=== PATIENT | male | born 1975 | race African-American/Black ===

== ENCOUNTER 2016-10-13 14:19 | Emergency (ER) | payer OTHER ==
[~2016-10-13] VITALS: Ht 182.9 cm; Wt 74.8 kg
[~2016-10-13 14:19] MED LIST: EXCETAB80 PO; LEXA1TAB PO; No Home Meds; OXYGEN INH; TRAZ100T4 PO; TRAZ50TA4 PO; [UNRECOGNIZED DRUG - OTHER] INH
[2016-10-13] MEDS ORDERED: PRAZ5CAP (14:31)
[2016-10-13] MEDS ORDERED: MIRT45TA (14:31)
[2016-10-13] MEDS ORDERED: BUPR150T3 (14:31)
[2016-10-13] MEDS ORDERED: OXAZEPAM 15 MG CAP PO ONE (14:45)
[2016-10-13 15:03] LABS: BASO % 0.2 % (0.0-1.0); EOS # 0.2 K/mm3 (0.0-0.50); EOS % 2.5 % (0.0-3.0); LARGE UNSTAINED CELL # 0.1 K/mm3 (0.0-0.4); LARGE UNSTAINED CELL % 1.5 % (0.0-4.0); LYMPH # 1.6 K/mm3 (1.5-4.5); LYMPH % 16.7 % (24.0-44.0); MEAN CORPUSCULAR HEMOGLOBIN 30.1 pg (27.0-33.0); MEAN CORPUSCULAR HGB CONC 34.7 g/dl (32.0-36.5); MEAN CORPUSCULAR VOLUME 86.9 fl (80.0-96.0); MONO # 0.3 K/mm3 (0.0-0.8); MONO % 3.7 % (0.0-5.0); NEUTROPHILS # 6.8 K/mm3 (1.8-7.7); NEUTROPHILS % 75.4 % (36.0-66.0); PLATELET COUNT, AUTOMATED 248 k/mm3 (150-450); RED CELL DISTRIBUTION WIDTH 12.6 % (11.5-14.5)
[2016-10-13 15:27] LABS: ALBUMIN 4.3 GM/DL (3.2-5.2); ALBUMIN/GLOBULIN RATIO 1.13 (1.00-1.93); ALKALINE PHOSPHATASE 95 U/L (45-117); ALT/SGPT 22 U/L (12-78); ANION GAP 10 MEQ/L (8-16); AST/SGOT 30 U/L (15-37); BILIRUBIN,DIRECT 0.1 MG/DL (0.0-0.2); BILIRUBIN,TOTAL 0.4 MG/DL (0.2-1.0); BLOOD UREA NITROGEN 7 MG/DL (7-18); CALCIUM LEVEL 9.8 MG/DL (8.5-10.1); CARBON DIOXIDE LEVEL 27 MEQ/L (21-32); CHLORIDE LEVEL 102 MEQ/L (98-107); CREATININE FOR GFR 0.79 MG/DL (0.70-1.30); GLOMERULAR FILTRATION RATE > 60.0 (>60); GLUCOSE, FASTING 108 MG/DL (70-105); POTASSIUM SERUM 4.5 MEQ/L (3.5-5.1); SODIUM LEVEL 139 MEQ/L (136-145); TOTAL PROTEIN 8.1 GM/DL (6.4-8.2)
[2016-10-13 16:34] VITALS: BP 150/89
[2016-10-13] MEDS ORDERED: OXAZ30CA2 PO (16:51)
== END 2016-10-13 17:05 | disposition home or self-care (01) ==
LOC: M ED 15:48
DX: F10.239 Alcohol dependence with withdrawal, unspecified (principal)

== ENCOUNTER → 2017-03-08 | Outpatient (CLI) | payer MEDICAID ==
[~2017-03-08] MED LIST changes: +BUPR150T3; +MIRT45TA; +OXAZ30CA2 PO; +PRAZ5CAP; +TRAZ-136 PO; -TRAZ100T4 PO; +TRAZ50TA11 PO; -TRAZ50TA4 PO
== END ==
LOC: M OUTALCOH 08:02
PROVIDERS: ATTEND Psychiatry & Neurology Psychiatry
DX: Z03.89 Encounter for observation for other suspected diseases and conditions ruled out (principal)

== ENCOUNTER 2017-03-17 09:00 | Outpatient (RCR) | payer MEDICAID | END 2017-03-30 | LOC: M OUTALCOH 09:00 | PROVIDERS: ATTEND Psychiatry & Neurology Psychiatry | DX: Z13.9 Encounter for screening, unspecified (principal); F10.20 Alcohol dependence, uncomplicated ==

== ENCOUNTER → 2017-06-14 | Outpatient (CLI) | payer MEDICAID | LOC: M OUTALCOH 07:49 | PROVIDERS: ATTEND Psychiatry & Neurology Psychiatry | DX: F10.20 Alcohol dependence, uncomplicated (principal); F12.20 Cannabis dependence, uncomplicated ==

== ENCOUNTER 2017-06-26 13:19 | Outpatient (RCR) | payer MEDICAID | END 2017-06-29 | LOC: M OUTALCOH 13:19 | PROVIDERS: ATTEND Psychiatry & Neurology Psychiatry | DX: F10.20 Alcohol dependence, uncomplicated (principal); F12.20 Cannabis dependence, uncomplicated; F17.200 Nicotine dependence, unspecified, uncomplicated ==

== ENCOUNTER 2017-06-30 11:03 | Outpatient (RCR) | payer MEDICAID | END 2017-07-30 | LOC: M OUTALCOH 07-06 13:00 | DX: F10.20 Alcohol dependence, uncomplicated (principal); F12.20 Cannabis dependence, uncomplicated; F17.200 Nicotine dependence, unspecified, uncomplicated ==

== ENCOUNTER 2017-07-29 15:58 | Inpatient (IN) | payer OTHER, MEDICAID ==
[2017-07-29 15:18] LABS: HEMATOCRIT 42.4 % (42.0-52.0); HEMOGLOBIN 15.2 g/dl (14.0-18.0); MEAN CORPUSCULAR HEMOGLOBIN 29.7 pg (27.0-33.0); MEAN CORPUSCULAR HGB CONC 35.8 g/dl (32.0-36.5); MEAN CORPUSCULAR VOLUME 82.8 fl (80.0-96.0); PLATELET COUNT, AUTOMATED 260 10^3/uL (150-450); RED BLOOD COUNT 5.12 10^6/uL (4.30-6.10); RED CELL DISTRIBUTION WIDTH 12.2 % (11.5-14.5); WHITE BLOOD COUNT 7.5 10^3/uL (4.0-10.0)
[2017-07-29 15:27] LABS: AMPHETAMINES LEVEL URINE NEGATIVE (NEGATIVE); BARBITURATES URINE NEGATIVE (NEGATIVE); BENZODIAZEPINES URINE NEGATIVE (NEGATIVE); CANNABINOIDS URINE NEGATIVE (NEGATIVE); COCAINE METABOLITE URINE NEGATIVE (NEGATIVE); METHADONE URINE NEGATIVE (NEGATIVE); OPIATES URINE NEGATIVE (NEGATIVE); PHENCYCLIDINE URINE NEGATIVE (NEGATIVE)
[2017-07-29] MEDS: OXAZEPAM 15 MG CAP PO (15:33)
[2017-07-29 15:39] LABS: ALBUMIN 4.5 GM/DL (3.2-5.2); ALBUMIN/GLOBULIN RATIO 1.22 (1.00-1.93); ALKALINE PHOSPHATASE 79 U/L (45-117); ALT/SGPT 34 U/L (12-78); ANION GAP 7 MEQ/L (8-16); AST/SGOT 30 U/L (7-37); BILIRUBIN,DIRECT 0.1 MG/DL (0.0-0.2); BILIRUBIN,TOTAL 0.4 MG/DL (0.2-1.0); BLOOD UREA NITROGEN 5 MG/DL (7-18); CALCIUM LEVEL 9.3 MG/DL (8.5-10.1); CARBON DIOXIDE LEVEL 29 MEQ/L (21-32); CHLORIDE LEVEL 102 MEQ/L (98-107); CREATININE FOR GFR 0.93 MG/DL (0.70-1.30); GLOMERULAR FILTRATION RATE > 60.0 (>60); GLUCOSE, FASTING 87 MG/DL (70-105); POTASSIUM SERUM 3.6 MEQ/L (3.5-5.1); SALICYLATE LEVEL 4.7 MG/DL (5.0-30.0); SODIUM LEVEL 138 MEQ/L (136-145); THYROID STIMULATING HORMONE 0.888 uIU/ML (0.358-3.740); TOTAL PROTEIN 8.2 GM/DL (6.4-8.2)
[2017-07-29 15:40] LABS: ACETAMINOPHEN LEVEL < 2.0 UG/ML (10.0-30.0); ETHYL ALCOHOL (ETHANOL) < 0.003 % (0.000-0.010)
[2017-07-29] MEDS ORDERED: LORazepam 2 MG TAB PO (17:00)
[2017-07-29] MEDS ORDERED: MAALOX 30 ML SUSP *UDC PO (17:00)
[2017-07-29] MEDS ORDERED: MOM 30ML SUSPENSION UDC PO (17:00)
[2017-07-29] MEDS ORDERED: ACETAMINOPHEN TAB 650MG DOSE (2X325MG) PO (17:00)
[2017-07-29] MEDS: FOLIC ACID 1 MG TAB PO (20:58)
[2017-07-29] MEDS: THIAMINE 100 MG TAB PO (20:58)
[2017-07-29] MEDS: MULTIVITAMINS/MINERALS THERAP 1 TAB PO (20:58)
[2017-07-30] MEDS: FOLIC ACID 1 MG TAB PO (08:12)
[2017-07-30] MEDS: THIAMINE 100 MG TAB PO ×2 (08:12→21:34)
[2017-07-30] MEDS: MULTIVITAMINS/MINERALS THERAP 1 TAB PO (08:12)
[2017-07-30] MEDS: NICOTINE 21MG/24HR 1 EA TRANSDERMAL TD (14:07)
[2017-07-30] MEDS: GABAPENTIN 400 MG CAP PO (21:34)
[2017-07-31] MEDS: ESCITALOPRAM OXALATE 10 MG TAB (LEXAPRO) PO (09:12)
[2017-07-31] MEDS: FOLIC ACID 1 MG TAB PO (09:12)
[2017-07-31] MEDS: NICOTINE 21MG/24HR 1 EA TRANSDERMAL TD (09:12)
[2017-07-31] MEDS: THIAMINE 100 MG TAB PO ×2 (09:12→20:50)
[2017-07-31] MEDS: MULTIVITAMINS/MINERALS THERAP 1 TAB PO (09:12)
[2017-07-31] MEDS: traZODone 50 MG TAB PO (20:50)
[2017-07-31] MEDS: GABAPENTIN 400 MG CAP PO (20:50)
[2017-07-31] MEDS ORDERED: IBUPROFEN 800 MG TAB PO (21:45)
[2017-08-01] MEDS: ESCITALOPRAM OXALATE 10 MG TAB (LEXAPRO) PO (08:39)
[2017-08-01] MEDS: THIAMINE 100 MG TAB PO (08:39)
[2017-08-01] MEDS: NICOTINE 21MG/24HR 1 EA TRANSDERMAL TD (08:39)
[2017-08-01] MEDS: MULTIVITAMINS/MINERALS THERAP 1 TAB PO (08:39)
[2017-08-01] MEDS: FOLIC ACID 1 MG TAB PO (08:39)
[2017-08-01] MEDS: HALOPERIDOL 5 MG TAB PO (18:11)
[2017-08-01] MEDS ORDERED: PRAZOSIN 1 MG CAP PO (21:00)
[2017-08-01] MEDS: GABAPENTIN 400 MG CAP PO (22:00)
[2017-08-01] MEDS: QUEtiapine FUMARATE 50 MG TAB PO (22:00)
[2017-08-02] MEDS: NICOTINE 21MG/24HR 1 EA TRANSDERMAL TD (08:26)
[2017-08-02] MEDS: FOLIC ACID 1 MG TAB PO (08:27)
[2017-08-02] MEDS: MULTIVITAMINS/MINERALS THERAP 1 TAB PO (08:27)
[2017-08-02] MEDS: ESCITALOPRAM OXALATE 10 MG TAB (LEXAPRO) PO (08:27)
[2017-08-02] MEDS: HALOPERIDOL 5 MG TAB PO (10:55)
[2017-08-02] MEDS: GABAPENTIN 400 MG CAP PO (20:34)
[2017-08-02] MEDS: QUEtiapine FUMARATE 100 MG TAB PO (20:34)
[2017-08-03] MEDS: ESCITALOPRAM OXALATE 10 MG TAB (LEXAPRO) PO (09:28)
[2017-08-03] MEDS: NICOTINE 21MG/24HR 1 EA TRANSDERMAL TD (09:28)
[2017-08-03] MEDS: MULTIVITAMINS/MINERALS THERAP 1 TAB PO (09:29)
[2017-08-03] MEDS: FOLIC ACID 1 MG TAB PO (09:29)
[2017-08-03] MEDS: HALOPERIDOL 5 MG TAB PO (13:26)
[2017-08-03] MEDS: QUEtiapine FUMARATE 100 MG TAB PO (20:02)
[2017-08-03] MEDS: GABAPENTIN 400 MG CAP PO (20:02)
[2017-08-04] MEDS: FOLIC ACID 1 MG TAB PO (08:58)
[2017-08-04] MEDS: NICOTINE 21MG/24HR 1 EA TRANSDERMAL TD (08:58)
[2017-08-04] MEDS: MULTIVITAMINS/MINERALS THERAP 1 TAB PO (08:58)
[2017-08-04] MEDS: ESCITALOPRAM OXALATE 10 MG TAB (LEXAPRO) PO (08:58)
[2017-08-04] MEDS: QUEtiapine FUMARATE 100 MG TAB PO (20:08)
[2017-08-04] MEDS: GABAPENTIN 400 MG CAP PO (20:08)
[2017-08-05] MEDS: NICOTINE 21MG/24HR 1 EA TRANSDERMAL TD (08:00)
[2017-08-05] MEDS: MULTIVITAMINS/MINERALS THERAP 1 TAB PO (08:00)
[2017-08-05] MEDS: ESCITALOPRAM OXALATE 10 MG TAB (LEXAPRO) PO (08:00)
[2017-08-05] MEDS: FOLIC ACID 1 MG TAB PO (08:00)
[2017-08-05] MEDS: GABAPENTIN 400 MG CAP PO (20:07)
[2017-08-05] MEDS: QUEtiapine FUMARATE 100 MG TAB PO (20:07)
[2017-08-06] MEDS: ESCITALOPRAM OXALATE 10 MG TAB (LEXAPRO) PO (08:05)
[2017-08-06] MEDS: FOLIC ACID 1 MG TAB PO (08:05)
[2017-08-06] MEDS: MULTIVITAMINS/MINERALS THERAP 1 TAB PO (08:05)
[2017-08-06] MEDS: NICOTINE 21MG/24HR 1 EA TRANSDERMAL TD (08:06)
[2017-08-06] MEDS: HALOPERIDOL 5 MG TAB PO (09:38)
[2017-08-06] MEDS: GABAPENTIN 400 MG CAP PO (20:48)
[2017-08-06] MEDS: QUEtiapine FUMARATE 100 MG TAB PO (20:48)
[2017-08-06] MEDS: traZODone 50 MG TAB PO (21:44)
[2017-08-07] MEDS: MULTIVITAMINS/MINERALS THERAP 1 TAB PO (08:39)
[2017-08-07] MEDS: FOLIC ACID 1 MG TAB PO (08:39)
[2017-08-07] MEDS: NICOTINE 21MG/24HR 1 EA TRANSDERMAL TD (08:39)
[2017-08-07] MEDS: ESCITALOPRAM OXALATE 10 MG TAB (LEXAPRO) PO (08:39)
[2017-08-07] MEDS: HALOPERIDOL 5 MG TAB PO (11:25)
[2017-08-07] MEDS: GABAPENTIN 400 MG CAP PO (20:03)
[2017-08-07] MEDS: QUEtiapine FUMARATE 100 MG TAB PO (20:04)
[2017-08-07] MEDS: traZODone 50 MG TAB PO (20:46)
[2017-08-08] MEDS: NICOTINE 21MG/24HR 1 EA TRANSDERMAL TD (08:30)
[2017-08-08] MEDS: ESCITALOPRAM OXALATE 10 MG TAB (LEXAPRO) PO (08:30)
[2017-08-08] MEDS: HALOPERIDOL 5 MG TAB PO (08:30)
[2017-08-08] MEDS: MULTIVITAMINS/MINERALS THERAP 1 TAB PO (08:30)
[2017-08-08] MEDS: FOLIC ACID 1 MG TAB PO (08:30)
[2017-08-08] MEDS: traZODone 50 MG TAB PO (20:08)
[2017-08-08] MEDS: QUEtiapine FUMARATE 100 MG TAB PO (20:08)
[2017-08-08] MEDS: GABAPENTIN 400 MG CAP PO (20:08)
[2017-08-09] MEDS: FOLIC ACID 1 MG TAB PO (08:24)
[2017-08-09] MEDS: NICOTINE 21MG/24HR 1 EA TRANSDERMAL TD (08:24)
[2017-08-09] MEDS: MULTIVITAMINS/MINERALS THERAP 1 TAB PO (08:24)
[2017-08-09] MEDS: ESCITALOPRAM OXALATE 10 MG TAB (LEXAPRO) PO (08:24)
[2017-08-09] MEDS: HALOPERIDOL 5 MG TAB PO (08:25)
== END 2017-08-09 14:25 | disposition home or self-care (01) | DRG 750 ==
LOC: M ED 15:58 → M ED INP 17:13 → M PSY 18:08
DX: F20.0 Paranoid schizophrenia (principal); F32.9 Major depressive disorder, single episode, unspecified; F10.10 Alcohol abuse, uncomplicated; F12.10 Cannabis abuse, uncomplicated; G44.009 Cluster headache syndrome, unspecified, not intractable; G47.00 Insomnia, unspecified; Z59.8 Other problems related to housing and economic circumstances; Z79.899 Other long term (current) drug therapy; Z91.038 Other insect allergy status; F17.210 Nicotine dependence, cigarettes, uncomplicated

== ENCOUNTER 2017-08-11 08:51 | Outpatient (RCR) | payer MEDICAID | END 2017-08-30 | LOC: M OUTALCOH 08:51 | DX: F10.20 Alcohol dependence, uncomplicated (principal); F12.20 Cannabis dependence, uncomplicated; F17.200 Nicotine dependence, unspecified, uncomplicated ==

== ENCOUNTER 2017-09-01 11:19 | Outpatient (RCR) | payer MEDICAID | END 2017-09-27 | LOC: M OUTALCOH 11:19 | DX: F10.20 Alcohol dependence, uncomplicated (principal); F12.20 Cannabis dependence, uncomplicated; F17.200 Nicotine dependence, unspecified, uncomplicated ==

== ENCOUNTER 2021-10-23 07:40 | Inpatient (IN) | payer MEDICAID ==
[~2021-10-23] VITALS: Ht 180.3 cm; Wt 69.4 kg
[~2021-10-23 07:40] MED LIST changes: +BUPR150T12; -BUPR150T3; +FOLI800C PO; +GABA-283 PO; -MIRT45TA; +MIRT45TA4 PO; +MULTCAP12 PO; +SERO200T PO; -TRAZ-136 PO; +TRAZ-252 PO; +TRAZ-257 PO; -TRAZ50TA11 PO; +ZIPR40CA11 PO
[2021-10-23] MEDS ORDERED: NS 1,000 ML IV ONE (07:55)
[2021-10-23] MEDS ORDERED: BOOSTRIX/ADACEL VACCINE (DIPHTH/PERTUSS/ACELL/TETANUS) 0.5ML SYR IM ONE (07:55)
[2021-10-23] MEDS ORDERED: ceFAZolin SOD 1 GM in D5W MINI-BAG PLUS 50 ML IV ONE (07:55)
[2021-10-23] MEDS ORDERED: LIDOCAINE W/EPINEPHRINE 1% 20ML VIAL SC ONE (08:05)
[2021-10-23] MEDS ORDERED: OLANZapine INTRAMUSCULAR 10MG VIAL IM ONE (08:10)
[2021-10-23 08:21] LABS: HEMATOCRIT 36.2 % (42.0-52.0); HEMOGLOBIN 12.9 g/dl (13.5-17.5); MEAN CORPUSCULAR HEMOGLOBIN 29.9 pg (27.0-33.0); MEAN CORPUSCULAR HGB CONC 35.6 g/dl (32.0-36.5); PLATELET COUNT, AUTOMATED 304 10^3/uL (150-450); RED BLOOD COUNT 4.31 10^6/uL (4.30-6.10); WHITE BLOOD COUNT 9.6 10^3/uL (4.0-10.0)
[2021-10-23] MEDS ORDERED: DERMABOND TOPICAL SKIN ADHESIVE TOP STA (08:33)
[2021-10-23 08:43] LABS: RSV AMPLIFICATION NEGATIVE (NEGATIVE)
[2021-10-23] MEDS ORDERED: MIDAZOLAM INJ 2MG/2ML VIAL (J2250 PER 1MG) IV STA (08:48)
[2021-10-23] MEDS ORDERED: fentaNYL 100 MCG/2 ML INJECTION IV ONE ×2 (08:50→09:40)
[2021-10-23 08:54] LABS: ACETAMINOPHEN LEVEL < 2.0 UG/ML (10.0-30.0); ALBUMIN 4.3 GM/DL (3.2-5.2); ALT/SGPT 36 U/L (12-78); BILIRUBIN,DIRECT 0.1 MG/DL (0.0-0.2); BILIRUBIN,TOTAL 0.4 MG/DL (0.2-1.0); BLOOD UREA NITROGEN 11 MG/DL (7-18); CALCIUM LEVEL 9.7 MG/DL (8.5-10.1); CARBON DIOXIDE LEVEL 26 MEQ/L (21-32); CHLORIDE LEVEL 105 MEQ/L (98-107); CREATININE FOR GFR 0.84 MG/DL (0.70-1.30); ETHYL ALCOHOL (ETHANOL) < 0.003 % (0.000-0.010); GLOMERULAR FILTRATION RATE > 60.0 (>60); GLUCOSE, FASTING 104 MG/DL (70-100); POTASSIUM SERUM 4.2 MEQ/L (3.5-5.1); SALICYLATE LEVEL 4.7 MG/DL (5.0-30.0); SODIUM LEVEL 138 MEQ/L (136-145); THYROID STIMULATING HORMONE 0.613 uIU/ML (0.358-3.740); TOTAL PROTEIN 7.2 GM/DL (6.4-8.2)
[2021-10-23 12:29] LABS: AMPHETAMINES LEVEL URINE NEGATIVE (NEGATIVE); BARBITURATES URINE NEGATIVE (NEGATIVE); BENZODIAZEPINES URINE POSITIVE (NEGATIVE); CANNABINOIDS URINE POSITIVE (NEGATIVE); COCAINE METABOLITE URINE NEGATIVE (NEGATIVE); METHADONE URINE NEGATIVE (NEGATIVE); OPIATES URINE NEGATIVE (NEGATIVE); PHENCYCLIDINE URINE NEGATIVE (NEGATIVE)
[2021-10-23] MEDS ORDERED: MAALOX 30 ML SUSP *UDC PO PRN (13:40)
[2021-10-23 15:04] VITALS: BP 143/65
[2021-10-23] MEDS ORDERED: HOME MED LIST COMPLETE! XX SCH (15:05)
[2021-10-23] MEDS: GABAPENTIN 400MG CAP PO SCH ×2 (15:37→21:18)
[2021-10-23] MEDS: PERCOCET 5MG/325MG TAB PO PRN ×2 (15:38→23:41)
[2021-10-23] MEDS: OLANZapine ORAL DISINTEGRATING TAB 5MG PO PRN (15:38)
[2021-10-23 19:53] VITALS: BP 129/69
[2021-10-23] MEDS: QUEtiapine FUMARATE 200 MG TAB PO SCH (21:18)
[2021-10-23] MEDS: PALIPERIDONE 3 MG ER TAB (INVEGA) PO SCH (21:18)
[2021-10-23] MEDS: ACETAMINOPHEN TAB 650MG DOSE (2X325MG) PO PRN (21:20)
[2021-10-24] MEDS: ACETAMINOPHEN TAB 650MG DOSE (2X325MG) PO PRN ×3 (05:21→23:47)
[2021-10-24 06:58] VITALS: BP 147/88
[2021-10-24] MEDS: FOLIC ACID 1 MG TAB PO SCH (08:10)
[2021-10-24] MEDS: GABAPENTIN 400MG CAP PO SCH ×3 (08:10→20:25)
[2021-10-24] MEDS: MULTIVITAMINS/MINERALS THERAP 1 TAB PO SCH (08:11)
[2021-10-24] MEDS: ESCITALOPRAM OXALATE 10 MG TAB (LEXAPRO) PO SCH (08:11)
[2021-10-24] MEDS: PALIPERIDONE 3 MG ER TAB (INVEGA) PO SCH ×2 (08:11→20:25)
[2021-10-24] MEDS: PERCOCET 5MG/325MG TAB PO PRN ×2 (09:25→20:47)
[2021-10-24] MEDS: NICOTINE 21MG/24HR 1 EA TRANSDERMAL TD SCH (15:21)
[2021-10-24] MEDS: OLANZapine ORAL DISINTEGRATING TAB 5MG PO PRN ×2 (16:59→20:46)
[2021-10-24] MEDS: DIVALPROEX 250 MG TAB PO SCH (20:25)
[2021-10-24] MEDS: QUEtiapine FUMARATE 200 MG TAB PO SCH (20:25)
[2021-10-24 20:30] VITALS: BP 146/91
[2021-10-24 21:23] VITALS: BP 159/94
[2021-10-24 22:24] VITALS: BP 115/76
[2021-10-25] MEDS: OLANZapine ORAL DISINTEGRATING TAB 5MG PO PRN (02:21)
[2021-10-25 04:50] VITALS: BP 134/84
[2021-10-25] MEDS: FOLIC ACID 1 MG TAB PO SCH (10:44)
[2021-10-25] MEDS: GABAPENTIN 400MG CAP PO SCH ×3 (10:44→20:18)
[2021-10-25] MEDS: MULTIVITAMINS/MINERALS THERAP 1 TAB PO SCH (10:44)
[2021-10-25] MEDS: ESCITALOPRAM OXALATE 10 MG TAB (LEXAPRO) PO SCH (10:45)
[2021-10-25] MEDS: NICOTINE 21MG/24HR 1 EA TRANSDERMAL TD SCH (10:45)
[2021-10-25] MEDS: DIVALPROEX 250 MG TAB PO SCH (10:45)
[2021-10-25] MEDS: PALIPERIDONE 3 MG ER TAB (INVEGA) PO SCH ×2 (10:45→20:18)
[2021-10-25] MEDS: ACETAMINOPHEN TAB 650MG DOSE (2X325MG) PO PRN (15:00)
[2021-10-25 16:26] VITALS: BP 135/83
[2021-10-25] MEDS: QUEtiapine FUMARATE 200 MG TAB PO SCH (20:18)
[2021-10-25] MEDS: DIVALPROEX 500MG *ER* TAB PO SCH (20:18)
[2021-10-25 21:04] VITALS: BP 98/50
[2021-10-25] MEDS ORDERED: LORazepam 2 MG TAB PO PRN (21:05)
[2021-10-25] MEDS: THIAMINE 100 MG TAB PO SCH (21:25)
[2021-10-25] MEDS: OXAZEPAM 15MG CAP PO SCH (21:26)
[2021-10-25] MEDS: PERCOCET 5MG/325MG TAB PO PRN (21:49)
[2021-10-26] MEDS: OXAZEPAM 15MG CAP PO SCH ×3 (05:58→21:33)
[2021-10-26 06:09] VITALS: BP 147/83
[2021-10-26 06:14] VITALS: BP 147/83
[2021-10-26] MEDS: PALIPERIDONE 3 MG ER TAB (INVEGA) PO SCH ×2 (08:00→20:47)
[2021-10-26] MEDS: GABAPENTIN 400MG CAP PO SCH (08:00)
[2021-10-26] MEDS: THIAMINE 100 MG TAB PO SCH ×2 (08:02→20:47)
[2021-10-26] MEDS: NICOTINE 21MG/24HR 1 EA TRANSDERMAL TD SCH (08:02)
[2021-10-26] MEDS ORDERED: MULTIVITAMINS/MINERALS THERAP 1 TAB PO SCH (09:00)
[2021-10-26] MEDS ORDERED: FOLIC ACID 1 MG TAB PO SCH (09:00)
[2021-10-26] MEDS ORDERED: ESCITALOPRAM OXALATE 5MG TABLET (LEXAPRO) PO SCH (09:00)
[2021-10-26 16:18] VITALS: BP 138/88
[2021-10-26] MEDS: PERCOCET 5MG/325MG TAB PO PRN (16:35)
[2021-10-26] MEDS: MOM 30ML SUSPENSION UDC PO PRN (19:13)
[2021-10-26] MEDS: DIVALPROEX 500MG *ER* TAB PO SCH (20:47)
[2021-10-26] MEDS: QUEtiapine FUMARATE 100 MG TAB PO SCH (20:48)
[2021-10-26] MEDS ORDERED: PALIPERIDONE 3 MG ER TAB (INVEGA) PO SCH (21:00)
[2021-10-26 21:59] VITALS: BP 138/88
[2021-10-27] MEDS: OXAZEPAM 15MG CAP PO SCH ×3 (06:03→22:00)
[2021-10-27 06:43] VITALS: BP 136/80
[2021-10-27] MEDS: THIAMINE 100 MG TAB PO SCH ×2 (09:00→20:35)
[2021-10-27] MEDS: PALIPERIDONE 3 MG ER TAB (INVEGA) PO SCH ×2 (09:31→20:31)
[2021-10-27] MEDS: NICOTINE 21MG/24HR 1 EA TRANSDERMAL TD SCH (09:33)
[2021-10-27] MEDS: OLANZapine ORAL DISINTEGRATING TAB 5MG PO PRN (14:05)
[2021-10-27 16:44] VITALS: BP 142/69
[2021-10-27] MEDS: MOM 30ML SUSPENSION UDC PO PRN (19:28)
[2021-10-27] MEDS: DIVALPROEX 500MG *ER* TAB PO SCH (20:32)
[2021-10-27] MEDS: QUEtiapine FUMARATE 100 MG TAB PO SCH (20:35)
[2021-10-27] MEDS ORDERED: PALIPERIDONE 3 MG ER TAB (INVEGA) PO SCH (21:00)
[2021-10-28] MEDS: OLANZapine ORAL DISINTEGRATING TAB 5MG PO PRN ×4 (02:03→21:57)
[2021-10-28 06:00] VITALS: BP 161/94
[2021-10-28] MEDS: OXAZEPAM 15MG CAP PO SCH ×3 (06:25→21:56)
[2021-10-28] MEDS: THIAMINE 100 MG TAB PO SCH ×2 (08:52→20:38)
[2021-10-28] MEDS: NICOTINE 21MG/24HR 1 EA TRANSDERMAL TD SCH (08:52)
[2021-10-28] MEDS: PALIPERIDONE 3 MG ER TAB (INVEGA) PO SCH ×2 (08:52→20:38)
[2021-10-28 09:12] LABS: CHOLESTEROL RISK RATIO 2.317 (<5); VALPROIC ACID (DEPAKOTE) 68.4 UG/ML (50.0-100.0)
[2021-10-28] MEDS: MOM 30ML SUSPENSION UDC PO PRN (15:12)
[2021-10-28] MEDS: PERCOCET 5MG/325MG TAB PO PRN (18:07)
[2021-10-28 18:29] VITALS: BP 124/84
[2021-10-28] MEDS: DIVALPROEX 500MG *ER* TAB PO SCH (20:38)
[2021-10-28] MEDS: QUEtiapine FUMARATE 100 MG TAB PO SCH (20:38)
[2021-10-28] MEDS ORDERED: PALIPERIDONE 6 MG ER TAB (INVEGA) PO SCH (21:00)
[2021-10-29 06:00] VITALS: BP 144/68
[2021-10-29] MEDS: OXAZEPAM 15MG CAP PO SCH (06:20)
[2021-10-29] MEDS: THIAMINE 100 MG TAB PO SCH (09:00)
[2021-10-29] MEDS ORDERED: PALIPERIDONE PALMITATE 234MG/1.5ML INJ (INVEGA)(FREE PSY INPT ONLY) IM SCH (09:00)
[2021-10-29] MEDS: NICOTINE 21MG/24HR 1 EA TRANSDERMAL TD SCH (09:32)
[2021-10-29] MEDS: PALIPERIDONE 3 MG ER TAB (INVEGA) PO SCH (09:33)
[2021-10-29] MEDS: OLANZapine ORAL DISINTEGRATING TAB 5MG PO PRN ×3 (09:34→20:04)
[2021-10-29] MEDS: PERCOCET 5MG/325MG TAB PO PRN (09:37)
[2021-10-29] MEDS: ACETAMINOPHEN TAB 650MG DOSE (2X325MG) PO PRN (13:13)
[2021-10-29] MEDS: OXAZEPAM 10MG CAP PO SCH ×2 (15:41→20:04)
[2021-10-29 16:26] VITALS: BP 136/88
[2021-10-29] MEDS: DIVALPROEX 500MG *ER* TAB PO SCH (20:04)
[2021-10-29] MEDS: QUEtiapine FUMARATE 100 MG TAB PO SCH (20:04)
[2021-10-29] MEDS: traZODone 50 MG TAB PO PRN (20:04)
[2021-10-30 06:27] VITALS: BP 125/77
[2021-10-30] MEDS: NICOTINE 21MG/24HR 1 EA TRANSDERMAL TD SCH (08:04)
[2021-10-30] MEDS: PERCOCET 5MG/325MG TAB PO PRN ×2 (08:06→20:26)
[2021-10-30] MEDS: OLANZapine ORAL DISINTEGRATING TAB 5MG PO PRN ×3 (08:06→20:26)
[2021-10-30] MEDS: OXAZEPAM 10MG CAP PO SCH ×3 (08:06→20:23)
[2021-10-30 09:56] LABS: HEMATOCRIT 35.7 % (42.0-52.0); HEMOGLOBIN 12.7 g/dl (13.5-17.5); MEAN CORPUSCULAR HEMOGLOBIN 30.5 pg (27.0-33.0); MEAN CORPUSCULAR HGB CONC 35.6 g/dl (32.0-36.5); MEAN CORPUSCULAR VOLUME 85.6 fl (80.0-96.0); PLATELET COUNT, AUTOMATED 312 10^3/uL (150-450); RED BLOOD COUNT 4.17 10^6/uL (4.30-6.10); WHITE BLOOD COUNT 9.3 10^3/uL (4.0-10.0)
[2021-10-30 16:16] VITALS: BP 140/84
[2021-10-30] MEDS: ACETAMINOPHEN TAB 650MG DOSE (2X325MG) PO PRN (17:05)
[2021-10-30] MEDS: DIVALPROEX 500MG *ER* TAB PO SCH (20:23)
[2021-10-30] MEDS: QUEtiapine FUMARATE 100 MG TAB PO SCH (20:23)
[2021-10-31 06:24] VITALS: BP 143/76
[2021-10-31] MEDS: OXAZEPAM 10MG CAP PO SCH ×3 (08:02→20:23)
[2021-10-31] MEDS: NICOTINE 21MG/24HR 1 EA TRANSDERMAL TD SCH (08:02)
[2021-10-31] MEDS: PERCOCET 5MG/325MG TAB PO PRN ×2 (08:03→20:24)
[2021-10-31] MEDS: OLANZapine ORAL DISINTEGRATING TAB 5MG PO PRN ×3 (08:03→20:24)
[2021-10-31 16:09] VITALS: BP 133/73
[2021-10-31] MEDS: DIVALPROEX 500MG *ER* TAB PO SCH (20:23)
[2021-10-31] MEDS: QUEtiapine FUMARATE 100 MG TAB PO SCH (20:23)
[2021-11-01] MEDS: OLANZapine ORAL DISINTEGRATING TAB 5MG PO PRN ×4 (04:24→20:46)
[2021-11-01] MEDS: ACETAMINOPHEN TAB 650MG DOSE (2X325MG) PO PRN (04:25)
[2021-11-01 06:28] VITALS: BP 121/81
[2021-11-01] MEDS: OXAZEPAM 10MG CAP PO SCH (08:11)
[2021-11-01] MEDS: NICOTINE 21MG/24HR 1 EA TRANSDERMAL TD SCH (08:11)
[2021-11-01] MEDS ORDERED: PALIPERIDONE PALMITATE 156MG/1ML INJ(INVEGA)(FREE PSY INPT ONLY) IM ONE (09:00)
[2021-11-01] MEDS: PERCOCET 5MG/325MG TAB PO PRN (09:10)
[2021-11-01 17:44] VITALS: BP 140/80
[2021-11-01] MEDS: QUEtiapine FUMARATE 100 MG TAB PO SCH (20:46)
[2021-11-01] MEDS: DIVALPROEX 500MG *ER* TAB PO SCH (20:46)
[2021-11-02 06:00] VITALS: BP 136/76
[2021-11-02] MEDS: NICOTINE 21MG/24HR 1 EA TRANSDERMAL TD SCH (08:34)
[2021-11-02] MEDS: OLANZapine ORAL DISINTEGRATING TAB 5MG PO PRN ×2 (08:35→18:17)
[2021-11-02] MEDS ORDERED: OXAZEPAM 10MG CAP PO SCH (09:00)
[2021-11-02] MEDS ORDERED: LORazepam 2 MG TAB PO PRN (14:00)
[2021-11-02 18:48] VITALS: BP 140/86
[2021-11-02 19:30] VITALS: BP 140/86
[2021-11-02] MEDS: QUEtiapine FUMARATE 100 MG TAB PO SCH (20:29)
[2021-11-02] MEDS: DIVALPROEX 500MG *ER* TAB PO SCH (20:29)
[2021-11-03 06:00] VITALS: BP 153/80
[2021-11-03] MEDS: OLANZapine ORAL DISINTEGRATING TAB 5MG PO PRN (08:10)
[2021-11-03] MEDS: NICOTINE 21MG/24HR 1 EA TRANSDERMAL TD SCH (08:10)
[2021-11-03 08:43] VITALS: BP 153/80
[2021-11-03] MEDS: PALIPERIDONE 3 MG ER TAB (INVEGA) PO SCH ×2 (11:16→20:09)
[2021-11-03] MEDS: IBUPROFEN 600MG TAB PO PRN ×2 (11:17→20:10)
[2021-11-03 16:55] VITALS: BP 138/79
[2021-11-03] MEDS: traZODone 50 MG TAB PO PRN (20:09)
[2021-11-03] MEDS: QUEtiapine FUMARATE 100 MG TAB PO SCH (20:09)
[2021-11-03] MEDS: DIVALPROEX 500MG *ER* TAB PO SCH (20:09)
[2021-11-04 06:54] VITALS: BP 146/76
[2021-11-04] MEDS: NICOTINE 21MG/24HR 1 EA TRANSDERMAL TD SCH (08:05)
[2021-11-04] MEDS: PALIPERIDONE 3 MG ER TAB (INVEGA) PO SCH (08:05)
[2021-11-04] MEDS: ACETAMINOPHEN TAB 650MG DOSE (2X325MG) PO PRN (08:07)
[2021-11-04] MEDS ORDERED: DEPA500T2 PO (09:14)
[2021-11-04] MEDS ORDERED: TRAZ-252 PO (09:14)
[2021-11-04] MEDS ORDERED: INVE234I IM (09:14)
[2021-11-04] MEDS ORDERED: PALI1TAB2 PO (09:14)
[2021-11-04] MEDS ORDERED: QUET100T2 PO (09:14)
[2021-11-04] MEDS ORDERED: NICO21PAT TD (09:14)
[2021-11-04 09:46] VITALS: BP 146/76
== END 2021-11-04 12:48 | disposition home or self-care (01) | DRG 740 ==
LOC: M ED 07:40 → EDBD 07:40 → M ED INP 13:36 → M PSY 14:57
PROVIDERS: ADMIT Student in an Organized Health Care Education/Training Program; ATTEND Student in an Organized Health Care Education/Training Program
PROC: 0KQR0ZZ Repair Left Upper Leg Muscle, Open Approach (ICD-10-PCS; principal; 2021-10-23)
DX: F25.0 Schizoaffective disorder, bipolar type (principal); S41.011A Laceration without foreign body of right shoulder, initial encounter; F43.10 Post-traumatic stress disorder, unspecified; F12.90 Cannabis use, unspecified, uncomplicated; S71.112A Laceration without foreign body, left thigh, initial encounter; X78.9XXA Intentional self-harm by unspecified sharp object, initial encounter; Y92.009 Unspecified place in unspecified non-institutional (private) residence as the place of occurrence of the external cause; R45.851 Suicidal ideations; G44.009 Cluster headache syndrome, unspecified, not intractable; Z62.811 Personal history of psychological abuse in childhood; Z91.030 Bee allergy status; Z20.822 Contact with and (suspected) exposure to COVID-19